=== PATIENT | male | born 1965 | race Asian ===

== ENCOUNTER 2022-10-27 19:14 | Inpatient (IN) | payer OTHER ==
[~2022-10-27] VITALS: Ht 162.6 cm; Wt 59.4 kg
[2022-10-27] MEDS ORDERED: SODIUM CHLORIDE 0.9% 100 ML ONE (19:21)
[2022-10-27] MEDS ORDERED: IOHEXOL 350 MG/ML 100 ML VIAL ONE (19:21)
[2022-10-27 19:27] VITALS: PULSE 66; RESP 20; O2SAT 97
[2022-10-27] MEDS ORDERED: LABETALOL HCL 5 MG/ML 20 ML VIAL IVP PRN ×2 (19:30)
[2022-10-27] MEDS ORDERED: LABETALOL HCL 5 MG/ML 20 ML VIAL IVP ONE (19:45)
[2022-10-27 19:55] LABS: BASOPHILS % (AUTO) 0.7 % (0.0-2.0); EOSINOPHILS % (AUTO) 1.8 % (1.0-6.0); HEMATOCRIT 47.9 % (41-53); HEMOGLOBIN 16.3 g/dL (13.5-17.5); LYMPHOCYTES # (AUTO) 2.3 K/uL (1.0-4.8); LYMPHOCYTES % (AUTO) 22.4 % (22.0-44.0); MEAN CORPUSCULAR HEMOGLOBIN 31.5 pg (26.0-34.0); MEAN CORPUSCULAR VOLUME 93 fL (80-100); MONOCYTES # (AUTO) 0.7 K/uL (0.1-1.0); MONOCYTES % (AUTO) 6.4 % (2.0-9.0); NEUTROPHILS # (AUTO) 7.2 K/uL (1.8-7.7); NEUTROPHILS % (AUTO) 68.7 % (40.0-70.0); PLATELET COUNT (AUTO) 161 K/uL (150-450); RED BLOOD CELL COUNT(AUTO) 5.18 MIL/uL (4.50-5.90); RED CELL DISTRIBUTION WIDTH 14.6 % (11.5-14.5)
[2022-10-27 20:02] VITALS: PULSE 66; RESP 20; O2SAT 97
[2022-10-27 20:09] LABS: PROTHROMBIN TIME 10.2 SEC (9.4-11.6)
[2022-10-27 20:15] LABS: ALBUMIN 3.4 g/dL (3.4-5.0); BILIRUBIN,TOTAL 0.6 mg/dL (0.1-1.0); CALCIUM, TOTAL 8.1 mg/dL (8.8-10.5); CREATININE 4.59 mg/dL (0.60-1.30)
[2022-10-27 20:22] LABS: POTASSIUM 2.6 mmol/L (3.5-5.1)
[2022-10-27] MEDS ORDERED: NiCARDipine HCL 25 MG in SODIUM CHLORIDE 0.9% 240 ML IV PRN (20:30)
[2022-10-27] MEDS: PROPOFOL 1000 MG/ISO-OSM 100 ML IV PRN (20:44)
[2022-10-27] MEDS ORDERED: ONDANSETRON HCL 4 MG/2 ML VIAL IVP PRN (21:00)
[2022-10-27] MEDS ORDERED: FentaNYL CIT 1000MCG/0.9% NACL 100 ML IV PRN (21:00)
[2022-10-27] MEDS ORDERED: LevETIRAcetam 750 MG in DEXTROSE 5%-WATER 100 ML IV ONE (21:00)
[2022-10-27] MEDS ORDERED: CHLORHEXIDINE GLUCONATE 0.12% 15 ML UDCUP ORAL RINSE MM SCH (21:00)
[2022-10-27] MEDS: NiCARDipine HCL 25 MG in SODIUM CHLORIDE 0.9% 240 ML IV PRN (21:02)
[2022-10-27] MEDS: POTASSIUM CHL 10 MEQ/WATER 50 ML IV SCH ×2 (21:05→21:47)
[2022-10-27] MEDS: NITROGLYCERIN 2% (1 GM=INCH) OINTMENT PACKET TP SCH (21:05)
[2022-10-27 21:29] LABS: ABG CARBOXYHEMOGLOBIN 0.9 % (0.0-1.5); ABG HCO3 22.5 mmol/L (22.0-26.0); ABG METHEMOGLOBIN 0.1 % (0.0-1.5); ABG OXYGEN CONTENT 22.3 mL/dL (15.0-23.0); ABG OXYGEN SATURATION 99.1 % (95.0-98.0); ABG OXYHEMOGLOBIN 98.1 % (94.0-100.0); ABG PCO2 50 mmHg (35-45); ABG PH 7.309 (7.35-7.450); PO2, ARTERIAL BG 158.8 mmHg (84.0-92.0); SITE, BLOOD GAS LFT RADIAL; SOURCE, BLOOD GAS ARTERIAL; TEMPERATURE, FAHRENHEIT, BG 99.4 FAHREN (96.0-98.6)
[2022-10-27 21:30] LABS: ABG A-A DIFF O2 358.9 mmHg (10-20.0); O2 DEVICE,BLOOD GAS VENT (ROOM AIR); PEEP,BG 5 cm H2O; VT, ABG 400 ml
[2022-10-27 22:40] VITALS: PULSE 64; RESP 24; O2SAT 97
[2022-10-27 23:13] LABS: APPEARANCE,URINE CLEAR (CLEAR); BILIRUBIN,URINE NEGATIVE (NEGATIVE); GLUCOSE, URINE (UA) 70-100 mg/dL (NEGATIVE); KETONES,URINE NEGATIVE (NEGATIVE); LEUKOCYTE ESTERASE ,URINE NEGATIVE (NEGATIVE); NITRATE,URINE NEGATIVE (NEGATIVE); OCCULT BLOOD,URINE TRACE (NEGATIVE); PH,URINE 7.5 (5.0-8.0); PROTEIN,URINE 300-600,SEE CONFIRM mg/dL (NEGATIVE); SPECIFIC GRAVITIY, URINE 1.013 (1.003-1.030); UROBILINOGEN,URINE <=1.0 mg/dL (<=1.0)
[2022-10-27 23:19] LABS: AMPHET/METH SCREEN,URINE NEGATIVE (NEGATIVE); BARBITURATE SCREEN, URINE NEGATIVE (NEGATIVE); BENZODIAZEPINES SCREEN,URINE NEGATIVE (NEGATIVE); CANNABINOID SCREEN,URINE NEGATIVE (NEGATIVE); COCAINE SCREEN,URINE NEGATIVE (NEGATIVE); METHADONE SCREEN, URINE NEGATIVE (NEGATIVE); OPIATE SCREEN,URINE NEGATIVE (NEGATIVE); PHENCYCLIDINE SCREEN,URINE NEGATIVE (NEGATIVE)
[2022-10-27 23:36] LABS: BACTERIA,URINE Rare /HPF (None Seen); RBC,URINE 0-2 /HPF (0-2); SQUAMOUS EPITHELIAL CELL,UR Few /LPF (None Seen); SULFOSALICYLIC ACID,URINE 3+ (Negative); WBC,URINE 0-2 /HPF (0-5)
[2022-10-28] VITALS (9 sets, daily range): BP systolic 129–132; BP diastolic 73–80; PULSE 58–96; RESP 24–30; TEMP 100.4–100.6; O2SAT 96–98
[2022-10-28 00:56] LABS: CALCIUM, TOTAL 8.1 mg/dL (8.8-10.5); CREATININE 4.73 mg/dL (0.60-1.30)
[2022-10-28] MEDS: NiCARDipine HCL 25 MG in SODIUM CHLORIDE 0.9% 240 ML IV PRN ×6 (03:08→20:35)
[2022-10-28] MEDS: PROPOFOL 1000 MG/ISO-OSM 100 ML IV PRN (03:08)
[2022-10-28] MEDS: POTASSIUM CHL 10 MEQ/WATER 50 ML IV SCH ×2 (05:01→05:45)
[2022-10-28] MEDS ORDERED: MANNITOL 25%-12.5 GM/50 ML VIAL IVP ONE (05:45)
[2022-10-28] MEDS: NITROGLYCERIN 2% (1 GM=INCH) OINTMENT PACKET TP SCH ×4 (05:46→17:25)
[2022-10-28] MEDS ORDERED: MANNITOL IV ONE (06:15)
[2022-10-28 06:56] LABS: GLUCOMETER DEV NAME(LOC) ERT.5
[2022-10-28 11:48] LABS: CHOL/HDL RATIO 5.1 (4.2-7.3)
[2022-10-28] MEDS: CHLORHEXIDINE GLUCONATE 0.12% 15 ML UDCUP ORAL RINSE MM SCH ×2 (13:04→20:29)
[2022-10-28] MEDS: SODIUM CHLORIDE 3% 500 ML IV SCH (14:30)
[2022-10-28 14:51] LABS: CREATININE 5.15 mg/dL (0.60-1.30); MAGNESIUM 2.6 mg/dL (1.80-2.40); PHOSPHORUS 4.5 mg/dL (2.5-4.9); POTASSIUM 3.4 mmol/L (3.5-5.1)
[2022-10-28] MEDS ORDERED: ACETAMINOPHEN 650 MG/ISO-OSM 65 ML IV ONE (21:45)
[2022-10-28] MEDS: NOREPINEPHRINE 8 MG/0.9 % NACL 250 ML IV PRN (22:40)
[2022-10-29] VITALS (15 sets, daily range): BP systolic 102–125; BP diastolic 38–73; PULSE 45–98; RESP 24; TEMP 95.2–99.7; O2SAT 94–99
[2022-10-29] MEDS: NITROGLYCERIN 2% (1 GM=INCH) OINTMENT PACKET TP SCH ×4 (00:56→18:00)
[2022-10-29 04:27] LABS: OCCULT BLOOD,GASTRIC FLUID POSITIVE (NEGATIVE)
[2022-10-29] MEDS: SODIUM CHLORIDE 3% 500 ML IV SCH (06:40)
[2022-10-29 07:04] LABS: BASOPHILS % (AUTO) 0.2 % (0.0-2.0); EOSINOPHILS % (AUTO) 0.1 % (1.0-6.0); HEMATOCRIT 34.8 % (41-53); HEMOGLOBIN 11.6 g/dL (13.5-17.5); LYMPHOCYTES # (AUTO) 1.1 K/uL (1.0-4.8); LYMPHOCYTES % (AUTO) 6.5 % (22.0-44.0); MEAN CORPUSCULAR HEMOGLOBIN 31.2 pg (26.0-34.0); MEAN CORPUSCULAR HGB CONC 33.3 G/dL (31.0-37.0); MEAN CORPUSCULAR VOLUME 94 fL (80-100); MONOCYTES # (AUTO) 1.6 K/uL (0.1-1.0); MONOCYTES % (AUTO) 9.3 % (2.0-9.0); NEUTROPHILS # (AUTO) 14.2 K/uL (1.8-7.7); NEUTROPHILS % (AUTO) 83.9 % (40.0-70.0); PLATELET COUNT (AUTO) 138 K/uL (150-450); RED BLOOD CELL COUNT(AUTO) 3.72 MIL/uL (4.50-5.90)
[2022-10-29 07:15] LABS: CALCIUM, TOTAL 7.7 mg/dL (8.8-10.5); CREATININE 7.21 mg/dL (0.60-1.30)
[2022-10-29 07:19] LABS: TOTAL PROTEIN, SERUM 5.5 g/dL (6.4-8.2)
[2022-10-29] MEDS ORDERED: SODIUM CHLORIDE 3% 500 ML IV ONE (12:15)
[2022-10-29 14:10] LABS: ABG BASE EXCESS -4.7 mmol/L (-2.0-3.0); ABG CARBOXYHEMOGLOBIN 0.3 % (0.0-1.5); ABG HCO3 21.1 mmol/L (22.0-26.0); ABG METHEMOGLOBIN 0.3 % (0.0-1.5); ABG OXYGEN CONTENT 16.4 mL/dL (15.0-23.0); ABG OXYGEN SATURATION 98.6 % (95.0-98.0); ABG PCO2 36 mmHg (35-45); ABG PH 7.377 (7.35-7.450); ABG TOTAL HEMOGLOBIN 11.7 G/dL (12.0-18.0); SOURCE, BLOOD GAS ARTERIAL; TEMPERATURE, FAHRENHEIT, BG 97.3 FAHREN (96.0-98.6)
[2022-10-29 14:11] LABS: ABG A-A DIFF O2 111.9 mmHg (10-20.0); O2 DEVICE,BLOOD GAS VENTILATOR (ROOM AIR); PEEP,BG 5 cm H2O; SITE, BLOOD GAS LFT RADIAL; VT, ABG 400 ml
[2022-10-29] MEDS: NOREPINEPHRINE 8 MG/0.9 % NACL 250 ML IV PRN (16:31)
[2022-10-29] MEDS: CHLORHEXIDINE GLUCONATE 0.12% 15 ML UDCUP ORAL RINSE MM SCH ×2 (16:40→20:27)
[2022-10-30] VITALS (11 sets, daily range): BP systolic 66–85; BP diastolic 39–51; PULSE 69–121; RESP 24–28; TEMP 96–98.8; O2SAT 87–92
[2022-10-30] MEDS: NITROGLYCERIN 2% (1 GM=INCH) OINTMENT PACKET TP SCH ×3 (00:32→06:00)
[2022-10-30] MEDS ORDERED: PHENYLEPHRINE 200 MG/D5%-WATER 250 ML IV PRN (04:15)
[2022-10-30 05:35] LABS: BASOPHILS % (AUTO) 0.5 % (0.0-2.0); EOSINOPHILS % (AUTO) 1.9 % (1.0-6.0); HEMATOCRIT 41.4 % (41-53); HEMOGLOBIN 13.6 g/dL (13.5-17.5); LYMPHOCYTES # (AUTO) 0.7 K/uL (1.0-4.8); LYMPHOCYTES % (AUTO) 13.3 % (22.0-44.0); MEAN CORPUSCULAR HEMOGLOBIN 31.4 pg (26.0-34.0); MEAN CORPUSCULAR HGB CONC 32.9 G/dL (31.0-37.0); MEAN CORPUSCULAR VOLUME 95 fL (80-100); MONOCYTES # (AUTO) 0.4 K/uL (0.1-1.0); MONOCYTES % (AUTO) 7.6 % (2.0-9.0); NEUTROPHILS # (AUTO) 3.9 K/uL (1.8-7.7); NEUTROPHILS % (AUTO) 76.7 % (40.0-70.0); PLATELET COUNT (AUTO) 124 K/uL (150-450); RED BLOOD CELL COUNT(AUTO) 4.34 MIL/uL (4.50-5.90); RED CELL DISTRIBUTION WIDTH 15.7 % (11.5-14.5)
[2022-10-30] MEDS: NOREPINEPHRINE 8 MG/0.9 % NACL 250 ML IV PRN ×2 (05:51→18:48)
[2022-10-30 05:54] LABS: ALBUMIN 1.8 g/dL (3.4-5.0); BILIRUBIN,TOTAL 0.9 mg/dL (0.1-1.0); CALCIUM, TOTAL 8.4 mg/dL (8.8-10.5); CREATININE 8.68 mg/dL (0.60-1.30); TOTAL PROTEIN, SERUM 5.6 g/dL (6.4-8.2)
[2022-10-30 07:36] LABS: ABG BASE EXCESS -9.2 mmol/L (-2.0-3.0); ABG CARBOXYHEMOGLOBIN 0.8 % (0.0-1.5); ABG HCO3 17.4 mmol/L (22.0-26.0); ABG METHEMOGLOBIN 0.3 % (0.0-1.5); ABG OXYGEN CONTENT 17.6 mL/dL (15.0-23.0); ABG OXYGEN SATURATION 90.9 % (95.0-98.0); ABG OXYHEMOGLOBIN 89.9 % (94.0-100.0); ABG PCO2 40 mmHg (35-45); ABG PH 7.267 (7.35-7.450); ABG TOTAL HEMOGLOBIN 13.9 G/dL (12.0-18.0); PO2, ARTERIAL BG 59.7 mmHg (84.0-92.0); SOURCE, BLOOD GAS ARTERIAL; TEMPERATURE, FAHRENHEIT, BG 97.9 FAHREN (96.0-98.6)
[2022-10-30 07:37] LABS: ABG A-A DIFF O2 614.5 mmHg (10-20.0); O2 DEVICE,BLOOD GAS VENTILATOR (ROOM AIR); PEEP,BG 5 cm H2O; SITE, BLOOD GAS RT RADIAL; VT, ABG 400 ml
[2022-10-30] MEDS ORDERED: DOPamine 400MG/D5W[STANDARD] 250 ML IV PRN (08:00)
[2022-10-30] MEDS ORDERED: VASOPRESSIN 40 UNITS in DEXTROSE 5%-WATER 98 ML IV PRN (08:00)
[2022-10-30 09:52] LABS: ABG BASE EXCESS -8.9 mmol/L (-2.0-3.0); ABG CARBOXYHEMOGLOBIN 0.4 % (0.0-1.5); ABG HCO3 17.4 mmol/L (22.0-26.0); ABG METHEMOGLOBIN 0.3 % (0.0-1.5); ABG OXYGEN CONTENT 15.7 mL/dL (15.0-23.0); ABG OXYHEMOGLOBIN 80.1 % (94.0-100.0); ABG PCO2 41 mmHg (35-45); ABG PH 7.266 (7.35-7.450); SOURCE, BLOOD GAS ARTERIAL
[2022-10-30 09:53] LABS: ABG A-A DIFF O2 628.1 mmHg (10-20.0); ABG OXYGEN SATURATION 80.7 % (95.0-98.0); O2 DEVICE,BLOOD GAS VENTILATOR (ROOM AIR); SITE, BLOOD GAS RT RADIAL
[2022-10-30 09:54] LABS: PEEP,BG 10 cm H2O; VT, ABG 400 ml
[2022-10-30] MEDS ORDERED: SODIUM BICARBONATE [ADULT] 8.4% 50 MEQ/50 ML SYRINGE IVP ONE (10:45)
[2022-10-30] MEDS ORDERED: LIDOCAINE 2% 6 ML JELLY TP ONE (16:54)
[2022-10-30] MEDS ORDERED: ETOMIDATE 2 MG/ML 10 ML VIAL IV ONE (16:54)
== END 2022-10-30 16:55 | DRG 208 ==
LOC: EMS 19:14 → ICU 10-28 06:42
PROVIDERS: ADMIT Internal Medicine; ATTEND Internal Medicine
PROC: 5A1945Z Respiratory Ventilation, 24-96 Consecutive Hours (ICD-10-PCS; principal; 2022-10-27)
PROC: 0BH17EZ Insertion of Endotracheal Airway into Trachea, Via Natural or Artificial Opening (ICD-10-PCS; 2022-10-27)
PROC: 05HA33Z Insertion of Infusion Device into Left Brachial Vein, Percutaneous Approach (ICD-10-PCS; 2022-10-30)
PROC: 05HB33Z Insertion of Infusion Device into Right Basilic Vein, Percutaneous Approach (ICD-10-PCS; 2022-10-30)
DX: J96.01 Acute respiratory failure with hypoxia (principal); I61.9 Nontraumatic intracerebral hemorrhage, unspecified; R40.20 Unspecified coma; N17.9 Acute kidney failure, unspecified; I16.1 Hypertensive emergency; E87.0 Hyperosmolality and hypernatremia; E87.1 Hypo-osmolality and hyponatremia; R73.9 Hyperglycemia, unspecified; E87.6 Hypokalemia; I50.9 Heart failure, unspecified; I11.0 Hypertensive heart disease with heart failure; E78.5 Hyperlipidemia, unspecified
CPT/HCPCS: 36569; 36600; 70450; 70496; 70498; 71045; 76937; 78606; 80048; 80053; 80061; 80307; 81001; 81002; 82271; 82570; 82805; 82948; 82962; 83036; 83735; 84100; 84295; 84300; 84484; 85025; 85610; 85730; 86850; 86900; 86901; 87081; 93005; 94002; 94003; 99291; A9521; G0378; J0131; J0712; J1265; J2370; J2405; J2704; J3480; J3490; J7030; J7050; J7060; Q9967; 36415-L1; 36415-TC